=== PATIENT | male | born 1985 | race Caucasian/White ===

== ENCOUNTER 2016-12-21 14:07 | Emergency (ER) | payer OTHER ==
[~2016-12-21 14:07] MED LIST: MOTRIN600 M1 PO; NO MEDICATIONS; OMNICEF300 M1 PO
== END 2016-12-21 14:10 | disposition left against medical advice (07) ==
LOC: SED 14:07
DX: T40.1X1A Poisoning by heroin, accidental (unintentional), initial encounter (principal)
CPT/HCPCS: 96374; 99283

== ENCOUNTER 2016-12-22 12:50 | Emergency (ER) | payer OTHER ==
--- NOTE | ~2016-12-22 | CT71 ---
[facility] A Service [facility] RADIOLOGY TEXT RESULTS PATIENT: DANII SERVIN LOCATION: [facility] : 83 UNIT #: [id number] AGE: [address]: Aamir Parks MD SEX: M ORDER DR: [id number] [address] [place], [place] [address] [id number] MR#: [id number] #: [id number] NAME: DANII SERVIN : 1985 SEX: M STUDY DATE/TIME: 12/22/2016 13:28 UNIT: JOSE ROOM: STUDY DESCRIPTION: CT Head Wo Contrast Attending Physician: Aamir Parks M.D. Ordering Physician: Aamir Parks M.D. Primary Care Physician: Primary Care Physician No MEDICAL IMAGING REPORT This report is preliminary unless electronic signature is present EXAM Noncontrast CT head. DATE 12/22/2016 HISTORY 31-year-old male numbness of the back of the head today. Pain in the back of the head. No known injury. COMPARISON None TECHNIQUE This CT exam was performed with one or more of the following radiation dose reduction techniques: automatic exposure control, adjustment of mA and/or kV according to patient size, and iterative reconstruction. FINDINGS No acute intracranial hemorrhage, mass lesion, mass effect or midline shift or evidence of acute or evolving infarct. There is extensive bilateral ethmoid and frontal sinus mucosal thickening with air fluid level left frontal sinus. Mild bilateral maxillary and sphenoid sinus mucosal thickening. Mastoid air cells are clear. No acute calvarial abnormality. IMPRESSION 1. Features of acute sinusitis with air-fluid level into the left frontal sinus, with fairly significant mucosal thickening in the bifrontal and ethmoid sinuses. 2. No acute intracranial findings. [facility] A Service [facility] RADIOLOGY TEXT RESULTS PATIENT: DANII SERVIN LOCATION: [facility] : 83 UNIT #: [id number] AGE: [address]: Aamir Parks MD SEX: M ORDER DR: Dictated by... Irasema Aburto M.D. THIS IS AN ELECTRONICALLY VERIFIED REPORT Irasema Aburto M.D. at 12/23/2016 7:34 AM IZABELA/gema TD: 12/22/2016 14:27 JOB #: [id number] MEDICAL IMAGING REPORT Page 1 of 1 COPY
== END 2016-12-22 15:20 | disposition home or self-care (01) ==
LOC: CED 12:50
DX: J32.9 Chronic sinusitis, unspecified (principal); R20.0 Anesthesia of skin; F17.200 Nicotine dependence, unspecified, uncomplicated
CPT/HCPCS: 70450; 99284